=== PATIENT | male | born 2000 | race Caucasian/White ===

== ENCOUNTER → 2022-01-11 09:25 | Outpatient (CLI) | payer OTHER, SELFPAY ==
--- NOTE | 2022-01-11 09:32 | CA_ITS ---
APPROVED REPORT EXAM: Comprehensive 2D, Doppler, and color-flow Echocardiogram Product Director: YFN Franklin, RVS Ht: 6 ft 0 in Wt: 230lbs BSA: 2.26 BP: 1450/90 mmHg Indications: Murmur, Ischemic heart disease, S/p COVID infection 2x. SOA, Smoker 2D Dimensions Aortic Root 3.03 cm LA Volume 43.30 mL Left Atrium 3.18 cm LA Volume Index [id number] mL/m2 (M/F) 16-34 LVOT 2.23 cm (M/F) 1.5-2.5 M-Mode Dimensions RVDd 2.68 cm (0.9-2.6) LA Diam 3.48 cm (1.9-4.0) LVDd 5.57 cm (3.5-5.7) Ao Diam 3.22 cm (2.0-3.7) LVDs 3.07 cm (3.5-5.7) IVSd 1.11 cm (0.6-1.1) PWd 0.82 cm (0.6-1.1) EF (Teich) 75.60% EPSs 0.68 cm FS 44.90% EDV (Teich) 151.80 mL TAPSE 1.87 (<1.7) ESV (Teich) 37.00 mL LV Diastology E Decel Time 75.00 (160-240 msec) E/A Ratio 1.88 MED E' 12.20 (< 7 cm/sec) MED A' 9.10 cm/s E'/MED E' Ratio 4.00 (>14) LAT E' 15.60 (<10 cm/sec) LAT A' 7.70 cm/s E/LAT E' Ratio 3.13 (>14) Aortic Valve LVOT Max 124.00 (70-110 cm/s) LVOT VTI 25.46 cm AoV Peak Angel. 127.00 (50-130 cm/s) AO Peak GR. 6.40 mmHg AO Mean GR. 2.90 (<5 mmHg) AO VTI 24.80 (18-25 cm) UMESH (VTI) 4.01 (2.5-4.5 cm2) Mitral Valve MV A Velocity 26.00 (40-130 cm/s) E/A Ratio 1.88 MV Decel. Time 75.00 (160-240 ms) Pulmonary Valve PV Peak Velocity 91.00 (50-150 cm/s) NC End VMAX 178.00 cm/s Tricuspid Valve TR P. Velocity 182.00 cm/s RAP Estimate 10.00 mmHg RVSP 23.20 mmHg Left Ventricle Left atrium normal size, left ventricle is normal size, there is no concentric left ventricular hypertrophy, visually estimated ejection fraction 55% with no regional wall motion abnormality. Diastolic parameters are within normal range. Right Ventricle Right atrium and right ventricle are normal size and contractility. Aortic Valve Aortic valve is grossly normal there is no aortic stenosis or aortic insufficiency. Mitral Valve Mitral valve grossly normal, there is trace mitral regurgitation. Tricuspid Valve Tricuspid valve grossly normal, there is trace tricuspid regurgitation, tricuspid regurgitation jet velocity is inadequate for calculation of the right ventricular systolic pressure. Pulmonic Valve Pulmonic valve is poorly visualized. Great Vessels Aortic root is normal size. Inferior vena cava is normal size with normal inspiratory collapse. Pericardium No significant pericardial effusion noted. Conclusion 1. Normal left ventricular size preserved left ventricular systolic function visually estimated ejection fraction 55% with no regional wall motion abnormality, diastolic parameters of within normal range. 2. Trace mitral and tricuspid regurgitation. 3. No significant pericardial effusion. 4. Inferior vena cava is normal size with normal inspiratory collapse. Electronically signed by : Silver Chapman MD 01/11/2022 10:32:42
== END ==
PROVIDERS: Visit Provider Chiropractor
DX: R01.1 Cardiac murmur, unspecified (principal)
CPT/HCPCS: 93306